=== PATIENT | male | born 1980 | race Caucasian/White ===

== ENCOUNTER 2017-01-19 13:33 | Emergency (ER) | payer OTHER ==
[~2017-01-19] VITALS: Ht 165.1 cm; Wt 81.7 kg
[2017-01-19 14:58] LABS: AMPHETAMINE QUAL UR NONE DETECTED (NEG <=1000)
[2017-01-19 15:54] VITALS: BP 144/84
== END 2017-01-19 15:54 | disposition home or self-care (01) ==
LOC: ED 13:33
PROVIDERS: Emergency Medicine
DX: S01.01XA Laceration without foreign body of scalp, initial encounter (principal); Z79.899 Other long term (current) drug therapy; W22.8XXA Striking against or struck by other objects, initial encounter; Y93.89 Activity, other specified; Y92.89 Other specified places as the place of occurrence of the external cause; Y99.8 Other external cause status
CPT/HCPCS: 80307

== ENCOUNTER 2017-01-21 07:38 | Emergency (ER) | payer OTHER ==
[2017-01-21 07:51] VITALS: BP 142/92
== END 2017-01-21 09:05 | disposition home or self-care (01) ==
LOC: ED 07:38
DX: S01.01XD Laceration without foreign body of scalp, subsequent encounter (principal); Z79.899 Other long term (current) drug therapy; W45.8XXD Other foreign body or object entering through skin, subsequent encounter; Y93.9 Activity, unspecified; Y92.89 Other specified places as the place of occurrence of the external cause; Y99.8 Other external cause status

== ENCOUNTER 2017-01-25 10:53 | Emergency (ER) | payer OTHER ==
[~2017-01-25] VITALS: Ht 177.8 cm; Wt 79.8 kg
[2017-01-25 10:57] VITALS: BP 161/101
== END 2017-01-25 11:11 | disposition home or self-care (01) ==
LOC: ED 10:53
DX: S01.01XD Laceration without foreign body of scalp, subsequent encounter (principal); R03.0 Elevated blood-pressure reading, without diagnosis of hypertension; W22.8XXD Striking against or struck by other objects, subsequent encounter; Y93.89 Activity, other specified; Y92.89 Other specified places as the place of occurrence of the external cause; Y99.8 Other external cause status